=== PATIENT | female | born 1985 ===

== ENCOUNTER → 2019-07-28 | Outpatient (CLI) | payer OTHER ==
[~2019-07-28] MED LIST: BCP; LABE100 PO; MICRONOR PO; NIFE30ER PO; PANT40; TRAM50 PO; Verotin-Gr Cap1 EACH
[2019-07-29 15:07] LABS: HPV 16 Negative (Negative); HPV 18 Negative (Negative); HPV OTHER HR TYPES Negative (Negative)
== END | disposition home or self-care (01) ==
LOC: LAB 17:42 → LAB SHORT 17:42
PROVIDERS: Obstetrics & Gynecology
DX: Z12.4 Encounter for screening for malignant neoplasm of cervix (principal)
CPT/HCPCS: 87624; G0123

== ENCOUNTER 2019-12-17 00:37 | Day surgery (SDC) | payer OTHER | END 2019-12-17 23:05 | disposition home or self-care (01) | LOC: WOUND 00:37 | DX: S81.801A Unspecified open wound, right lower leg, initial encounter (principal); L97.812 Non-pressure chronic ulcer of other part of right lower leg with fat layer exposed; I96 Gangrene, not elsewhere classified; Z88.2 Allergy status to sulfonamides; V80.010A Animal-rider injured by fall from or being thrown from horse in noncollision accident, initial encounter | CPT/HCPCS: G0463 ==

== ENCOUNTER 2019-12-28 01:05 | Day surgery (SDC) | payer OTHER | END 2019-12-28 23:27 | disposition home or self-care (01) | LOC: WOUND 01:05 | DX: L97.909 Non-pressure chronic ulcer of unspecified part of unspecified lower leg with unspecified severity (principal) | CPT/HCPCS: G0463 ==

== ENCOUNTER 2020-01-04 00:39 | Day surgery (SDC) | payer OTHER | END 2020-01-04 22:52 | disposition home or self-care (01) | LOC: WOUND 00:39 | DX: S81.801A Unspecified open wound, right lower leg, initial encounter (principal); I96 Gangrene, not elsewhere classified; Z88.2 Allergy status to sulfonamides; Z79.899 Other long term (current) drug therapy; X58.XXXA Exposure to other specified factors, initial encounter | CPT/HCPCS: G0463 ==

== ENCOUNTER 2020-01-12 00:44 | Day surgery (SDC) | payer OTHER | END 2020-01-12 12:00 | disposition home or self-care (01) | LOC: WOUND 00:44 | DX: S81.801A Unspecified open wound, right lower leg, initial encounter (principal); I96 Gangrene, not elsewhere classified; L97.812 Non-pressure chronic ulcer of other part of right lower leg with fat layer exposed; Z88.2 Allergy status to sulfonamides; Z79.899 Other long term (current) drug therapy; X58.XXXA Exposure to other specified factors, initial encounter ==

== ENCOUNTER 2020-01-18 02:01 | Day surgery (SDC) | payer OTHER | END 2020-01-18 23:12 | disposition home or self-care (01) | LOC: WOUND 02:01 | DX: S81.801A Unspecified open wound, right lower leg, initial encounter (principal); I96 Gangrene, not elsewhere classified; L97.812 Non-pressure chronic ulcer of other part of right lower leg with fat layer exposed; Z88.2 Allergy status to sulfonamides; Z79.899 Other long term (current) drug therapy; V80.010A Animal-rider injured by fall from or being thrown from horse in noncollision accident, initial encounter ==

== ENCOUNTER 2020-01-27 00:14 | Day surgery (SDC) | payer OTHER | END 2020-01-27 23:18 | disposition home or self-care (01) | LOC: WOUND 00:14 | DX: I96 Gangrene, not elsewhere classified (principal); L97.812 Non-pressure chronic ulcer of other part of right lower leg with fat layer exposed; S81.801A Unspecified open wound, right lower leg, initial encounter; Z88.2 Allergy status to sulfonamides; Z79.899 Other long term (current) drug therapy; V80.010A Animal-rider injured by fall from or being thrown from horse in noncollision accident, initial encounter | CPT/HCPCS: G0463 ==

== ENCOUNTER 2020-02-04 00:41 | Day surgery (SDC) | payer OTHER | END 2020-02-04 23:02 | disposition home or self-care (01) | LOC: WOUND 00:41 | DX: L97.811 Non-pressure chronic ulcer of other part of right lower leg limited to breakdown of skin (principal); S81.801D Unspecified open wound, right lower leg, subsequent encounter; Z88.2 Allergy status to sulfonamides; Z79.899 Other long term (current) drug therapy; V80.010D Animal-rider injured by fall from or being thrown from horse in noncollision accident, subsequent encounter | CPT/HCPCS: G0463 ==